=== PATIENT | male | born 1995 | race Caucasian/White ===

== ENCOUNTER 2020-12-17 17:49 | Emergency (ER) | payer OTHER ==
[~2020-12-17] VITALS: Ht 175.3 cm; Wt 111.1 kg
[2020-12-17] MEDS ORDERED: AUGMENTIN 875-1 EACH PO (21:05)
[2020-12-17 21:37] VITALS: BP 145/67
== END 2020-12-17 21:38 | disposition home or self-care (01) ==
LOC: M.ERS 17:49
DX: S71.152A Open bite, left thigh, initial encounter (principal); S71.112A Laceration without foreign body, left thigh, initial encounter; W54.0XXA Bitten by dog, initial encounter; Y93.89 Activity, other specified; Y92.89 Other specified places as the place of occurrence of the external cause; Y99.0 Civilian activity done for income or pay